=== PATIENT | male | born 1990 | race Caucasian/White ===

== ENCOUNTER 2022-01-22 10:11 | Outpatient (CLI) | payer OTHER, SELFPAY ==
[2022-01-22 20:37] LABS: Hemoglobin A1C 4.8 % (<5.7)
[2022-01-22 20:52] LABS: Alanine Aminotransferase 27 U/L (6-50); Albumin Level 4.7 g/dL (3.5-5.1); Alkaline Phosphatase 37 U/L (38-126); Anion Gap 9 mmol/L (8-16); Aspartate Amino Transferase 32 U/L (17-59); Blood Urea Nitrogen 11 mg/dL (9-20); Calcium 9.3 mg/dL (8.4-10.2); Carbon Dioxide 30 mmol/L (22-30); Chloride 98 mmol/L (98-107); Cholesterol 123 mg/dL (0-200); Estimated Glomerular Filt Rate > 60; Glucose 84 mg/dL (65-110); HDL Direct 44 mg/dL; Potassium 4.6 mmol/L (3.4-5.0); Sodium 137 mmol/L (137-145); Triglycerides 40 mg/dL (<150)
[2022-01-22 21:03] LABS: LDL Cholesterol Direct 54 mg/dL
== END 2022-01-22 10:12 | disposition home or self-care (01) ==
LOC: ANHGOSHLAB 10:14
PROVIDERS: PCP Emergency Medicine; Visit Provider Emergency Medicine
DX: Z00.00 Encounter for general adult medical examination without abnormal findings (principal)
CPT/HCPCS: 36415; 80053; 80061; 83036

== ENCOUNTER 2022-12-24 10:12 | Outpatient (CLI) | payer OTHER, SELFPAY ==
[2022-12-24 14:01] LABS: Alanine Aminotransferase 32 U/L (6-50); Albumin Level 4.3 g/dL (3.5-5.1); Alkaline Phosphatase 34 U/L (38-126); Anion Gap 7 mmol/L (8-16); Aspartate Amino Transferase 34 U/L (17-59); Bilirubin,Total 0.8 mg/dL (0.2-1.3); Blood Urea Nitrogen 11 mg/dL (9-20); Carbon Dioxide 31 mmol/L (22-30); Chloride 101 mmol/L (98-107); Cholesterol 127 mg/dL (0-200); Estimated Glomerular Filt Rate > 60; Glucose 84 mg/dL (65-110); HDL Direct 44 mg/dL; Potassium 4.3 mmol/L (3.4-5.0); Sodium 139 mmol/L (137-145); Triglycerides 37 mg/dL (<150)
[2022-12-24 14:12] LABS: LDL Cholesterol Direct 58 mg/dL
[2022-12-25 07:25] LABS: Hemoglobin A1C 4.8 % (<5.7)
== END 2022-12-24 10:13 | disposition home or self-care (01) ==
LOC: ANHGOSHLAB 10:13
PROVIDERS: PCP Emergency Medicine; Visit Provider Emergency Medicine
DX: Z00.00 Encounter for general adult medical examination without abnormal findings (principal)
CPT/HCPCS: 36415; 80053; 80061; 83036

== ENCOUNTER 2023-12-28 10:10 | Outpatient (CLI) | payer OTHER, SELFPAY ==
[2023-12-28 16:44] LABS: Alanine Aminotransferase 24 U/L (6-50); Albumin Level 4.6 g/dL (3.5-5.1); Alkaline Phosphatase 33 U/L (38-126); Anion Gap 10 mmol/L (4-12); Aspartate Amino Transferase 33 U/L (17-59); Bilirubin,Total 0.7 mg/dL (0.2-1.3); Blood Urea Nitrogen 17 mg/dL (9-20); Carbon Dioxide 30 mmol/L (22-30); Chloride 98 mmol/L (98-107); Cholesterol 142 mg/dL (0-200); Estimated Glomerular Filt Rate > 60; Glucose 82 mg/dL (65-110); HDL Direct 47 mg/dL; Potassium 4.6 mmol/L (3.4-5.0); Sodium 138 mmol/L (137-145); Triglycerides 46 mg/dL (<150)
[2023-12-28 16:56] LABS: LDL Cholesterol Direct 78 mg/dL
[2023-12-28 19:16] LABS: Hemoglobin A1C 5.2 % (<5.7)
== END 2023-12-28 10:11 | disposition home or self-care (01) ==
LOC: ANHGOSHLAB 10:10
PROVIDERS: PCP Emergency Medicine; Visit Provider Emergency Medicine
DX: Z00.00 Encounter for general adult medical examination without abnormal findings (principal)
CPT/HCPCS: 36415; 80053; 80061; 83036

== ENCOUNTER 2024-12-27 08:09 | Outpatient (CLI) | payer OTHER, SELFPAY ==
[2024-12-27 15:00] LABS: Hematocrit 44.0 % (42.0-52.0); Hemoglobin 14.3 g/dL (14.0-18.0); Immature Granulocyte Percent A 0.0 % (0-0.5); Lymphocytes Absolute Auto 1.06 K/mm3 (0.9-3.2); Mean Corpuscular HGB Conc 32.5 g/dl (32-36); Mean Corpuscular Hemoglobin 29.7 pg (26-34); Mean Corpuscular Volume 91.5 fl (80-100); Nucleated Red Blood Cells Absolute Auto 0.000 K/mm3 (0.0-0.012); Nucleated Red Blood Cells Perc 0.0 % (0.0-0.2); Platelet Count Result 164 k/mm3 (150-375); Red Blood Count 4.81 M/mm3 (4.6-6.20); White Blood Count 3.4 K/mm3 (4.5-10.0)
[2024-12-27 15:13] LABS: Hemoglobin A1C 5.1 % (<5.7)
[2024-12-27 15:33] LABS: Alanine Aminotransferase 22 U/L (6-50); Albumin Level 4.6 g/dL (3.5-5.1); Alkaline Phosphatase 35 U/L (38-126); Anion Gap 9 mmol/L (4-12); Aspartate Amino Transferase 33 U/L (17-59); Bilirubin,Total 0.7 mg/dL (0.2-1.3); Blood Urea Nitrogen 14 mg/dL (9-20); Calcium 9.2 mg/dL (8.4-10.2); Carbon Dioxide 27 mmol/L (22-30); Chloride 102 mmol/L (98-107); Cholesterol 181 mg/dL (0-200); Estimated Glomerular Filt Rate > 60; Glucose 72 mg/dL (65-110); HDL Direct 53 mg/dL; Potassium 4.4 mmol/L (3.4-5.0); Sodium 138 mmol/L (137-145); Total Protein 7.7 g/dL (6.3-8.2); Triglycerides 52 mg/dL (<150)
[2024-12-27 16:02] LABS: Thyroid Stimulating Hormone Reflex 3.160 uIU/mL (0.465-4.68)
[2024-12-27 16:09] LABS: Prostate Specific Antigen 0.8 ng/mL (< OR = 4.0)
[2024-12-27 16:28] LABS: Vitamin B12 400.0 pg/mL (239-931)
== END 2024-12-27 08:10 | disposition home or self-care (01) ==
LOC: ANHGOSHLAB 08:10
PROVIDERS: PCP Family Medicine; Visit Provider Family Medicine
DX: Z13.29 Encounter for screening for other suspected endocrine disorder (principal); E53.8 Deficiency of other specified B group vitamins; Z00.00 Encounter for general adult medical examination without abnormal findings; Z13.1 Encounter for screening for diabetes mellitus; Z13.220 Encounter for screening for lipoid disorders; E55.9 Vitamin D deficiency, unspecified; Z12.5 Encounter for screening for malignant neoplasm of prostate; Z80.42 Family history of malignant neoplasm of prostate
CPT/HCPCS: 36415; 80053; 80061; 82306; 82607; 83036; 84153; 84443; 85025; G0103

== ENCOUNTER → 2025-04-09 12:12 | Outpatient (REF) | payer OTHER, SELFPAY ==
--- NOTE | 2025-04-09 12:12 | S_PTH ---
PATIENT: Kenneth Niño LOC: [facility] U#:[id number] AGE/SX: 34/M ROOM: RE04/09/[address]: Thalia Diaz PA-C : 1990 BED: DIS: SPEC #: [id number] RECD: 04/09/25 12:52 STATUS: ALYSSA RE #: [id number] PATRICIA: 04/09/25 12:[address]: Thalia Diaz DEPT: [facility] Surgical RECD BY: Carolyn Lopez ENTERED: 04/09/25 12:54 SP TYPE: Surgical OTHR DR: Alejandra He MD Tissues: A - Mass B - Mass C - Mass Procedures: Hematoxylin and Eosin Stain Gross and Microscopic Level 3
== END ==
LOC: ANHLAB 12:12
PROVIDERS: PCP Family Medicine; Visit Provider Physician Assistant Surgical
DX: L72.9 Follicular cyst of the skin and subcutaneous tissue, unspecified (principal)
CPT/HCPCS: 88304

== ENCOUNTER → 2025-04-30 11:32 | Outpatient (REF) | payer OTHER, SELFPAY ==
--- NOTE | 2025-04-30 11:32 | S_PTH ---
PATIENT: Kenneth Niño LOC: [facility] #:[id number] AGE/SX: 34/M ROOM: RE04/30/[address]: Bryant Rodriguez MD : 1990 BED: DIS: SPEC #: [id number] RECD: 04/30/25 12:53 STATUS: ALYSSA REEfe #: [id number] APTRICIA: 04/30/25 11:[address]: Bryant Rodriguez DEPT: [facility] Surgical RECD BY: Carolyn Lopez ENTERED: 04/30/25 12:53 SP TYPE: Surgical OTHR DR: Alejandra He MD Tissues: A - Cyst Procedures: Hematoxylin and Eosin Stain Gross and Microscopic Level 4
--- OUTSIDE RECORDS SUMMARY | 2025-04-30 13:44 | XMS_ITS | Clinical Summary ---
Author Organization [facility] Address [address] [place] [address] Care Team Providers Care Freight Broker Agent Name Role Phone Unavailable Primary Care Provider Unavailabl e Source Comments [facility],non-owned Affiliates and Associated Physician Practices is amultiple site organization consisting of ambulatory clinics and hospital sitesin [place], [place], [place]. This disclosure is being madepursuant to the Care Everywhere program and may not contain all information available regarding this patient. Last updated 18.[facility] Allergies No known active allergies Medications * Be aware that medications may not be up to date on this document. Alwaysverify current medications with the patient. No known medications Active Problems No known active problems Encounters Date Type Department Care Team Description 04/27/2025 Results Follow-Up 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) 04/26/2025 Travel 04/25/2025 Telephone [facility]ology [address] , [facility] [address] [place] [address] Cele Khan MD Question 04/24/2025 Results Follow-Up [facility] [address] [place] [phone] Robyn Painter MD 04/18/2025 10:40 AM MAINTENANCE MECHANIC MILLWRIGHT Office Visit [facility] - Dermatology [address] [place] [phone] Robyn Painter MD Neoplasm of unspecified behavior of bone, soft tissue, and skin (Primary Dx); Multiple benign nevi; Lentigines 04/18/2025 Travel 04/17/2025 Travel from Last 3 Months Social History Tobacco Use Types Packs/Day Years Used Date Smoking Tobacco: Never Smokeless Tobacco: Never Tobacco Cessation:Counseling Given: Not Answered Alcohol Use Standard Drinks/Week Comments Yes 0 (1 standard drink = 0.6 oz pur e alcohol) Sex and Gender Information Value Date Recorded Sex Assigned at Not on file Legal Sex Male 6:47 AM MAINTENANCE MECHANIC MILLWRIGHT Gender Identity Not on file Sexual Orientation Not on file Plan of Treatment Upcoming Encounters Date Type Department Care Team (Late st Contact Info) Description 05/24/2025 8:00 AM MAINTENANCE MECHANIC MILLWRIGHT Clinical Support [facility] - Dermatology [address] [place] [phone] 04/17/2026 8:20 AM MAINTENANCE MECHANIC MILLWRIGHT Office Visit [facility] - Dermatology [address] [place] [phone] Robyn Painter MD [address] [place] [address] [place] [address] Health Maintenance Due Date Last Done Comments HIV SCREENING 12/08/2007 HEPATITIS C SCREENING 12/03/2010 DTAP/TDAP/TD VACCINES (1 - Tdap) 12/08/2011 HEPATITIS B VACCINE (1 of 3 - 19+ 3-dose series) 12/08/2011 HPV VACCINE (1 - 3-dose SCDM series) 12/08/2019 DEPRESSION SCREENING 06/07/2024 COVID-19 VACCINE ( - season) 2025 06/02/2021, 09/28/2020, 09/05/2020 INFLUENZA VACCINE (#1) 2025 , 05/28/2023, 05/20/2021, Additional history exists ZOSTER VACCINE (1 of 2) 2042 HIB VACCINE Aged Out No longer eligi ble based on patient's age to complete this topic MENINGOCOCCAL (Group B) VACCINE SHARED DECISION-MAKING Aged Out No longer eligible based on patient's age to complete this topic MENINGOCOCCAL GROUPS A/C/Y/W VACCINE Aged Out No longer eligible based on patient's age to complete this topic PNEUMOCOCCAL VACCINE Aged Out No long er eligible based on patient's age to complete this topic Procedures Procedure Name Priority Date/Time Associated Diagnosis Comments CHG IMMUNOCYTOCHEMISTRY Routine 04/26/20 2:36 PM MAINTENANCE MECHANIC MILLWRIGHT 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) OR [facility] MOHS MG TQ H/N/H/F/G 1ST STAG 5 BLOC Routine 04/26/2025 2:36 PM MAINTENANCE MECHANIC MILLWRIGHT 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) DERMATOPATHOLOGY Routine 04/26/2025 8:55 AM MAINTENANCE MECHANIC MILLWRIGHT 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) DERMATOPATHOLOGY Routine 04/18/2025 12:0 1 PM MAINTENANCE MECHANIC MILLWRIGHT Neoplasm of unspecified behavior of bone, soft tissue, and skin OR TANGNTL BX SKIN SINGLE LES Routine 04/18/2025 11:30 AM MAINTENANCE MECHANIC MILLWRIGHT Neoplasm of unspecified behavior of bone, soft tissue, and skin from Last 3 Months Results * OR [facility] MOHS MG TQ H/N/H/F/G 1ST STAG 5 BLOC, CHG IMMUNOCYTOCHEMISTRY (04/26/2025 2:36 PM MAINTENANCE MECHANIC MILLWRIGHT) Narrative Cele Khan MD - 04/26/2025 2:36 PM MAINTENANCE MECHANIC MILLWRIGHT Cele Khan MD 04/26/2025 5:17 PM Mohs Micrographic Surgery Operative Note Procedure: Mohs micrographic surgery Date of service: 04/26/2025 Location: left 2nd dorsal toe Preop diagnosis: Melanoma in situ Postop diagnosis: Melanoma in situ Mohs AUC score: 8 Number of stages: 1 Preop size: 0.8x0.6 cm Postop size: 1.6x1.6x cm Depth of final defect: adipose Previous dermpath accession #: [id number] Repair type: second intent Mohs accession #: [id number] Surgeon and Pathologist: Cele Khan MD served as both surgeon and pathologist. No other physician was involved in the cancer removal or pathology interpretation. Assistants: N/A Indications for Mohs Surgery Removal of the patient's tumor is complicated by the following clinical features: Clinical area critical for tissue conservation (Area H: central face, eyelids, eyebrows, nose, lips, chin, ear, periauricular, judaism, genitalia, hands, feet, ankles, nail units and areola). Based on my medical judgement, Mohs surgery is the most appropriate treatment for this cancer compared to other treatments. I discussed alternative treatments to Mohs surgery and specifically discussed the risks and benefits of curettage, excision with permanent sections, and foregoing treatment. The rationale for Mohs was explained to the patient and consent was obtained. The risks, benefits and alternatives to therapy were discussed in detail. Specifically, the risks of infection, scarring, bleeding, prolonged wound healing, incomplete removal, allergy to anesthesia, nerve injury and recurrence were addressed. Prior to the procedure, the treatment site was clearly identified and confirmed by the patient. All components of Hallie Protocol/PAUSE Rule completed. Procedural pause conducted to verify: correct patient identity with two patient identifiers (name and ), procedure to be performed and as applicable, correct side and site, correct patient position, and availability of implants, special equipment or special requirements. INFORMED CONSENT Discussed the risks, benefits, alternatives, and the necessity of other members of the healthcare team participating in the procedure. All questions answered and consent given. PATIENT EDUCATION Ready to learn, no apparent learning barriers were identified; learning preferences include listening. Explained diagnosis and treatment plan; patient expressed understanding of the content. STAGE I: The patient was placed on the operating table. The cancer was identified and outlined. An area of normal skin from the uninvolved foot was taken as a negative control. An area of involved skin from the tumor biopsy site was taken as a positive control. The entire surgical field was prepped with hibiclens. The surgical site was anesthetized using Lidocaine 1% with epinephrine 1:100,000 buffered with sodium bicarbonate 8.4% in a 1:10 ratio.The area of clinically apparent tumor was excised with an 3mm margin to fat as a debulk. Given the aggressive nature of the tumor, the tumor debulk was sent to the [facility] Dermatopathology lab for permanent sections with or without immunohistochemistry to evaluate the tumor for aggressive features and to stage the tumor by measuring tumor depth. This was NOT done for margin analysis. The Mohs layer taken around the debulk was processed as outlined in stage 1 below, in the typical Mohs fashion. Controls were deemed to be running properly: Positive control: N/A. No tumor seen at the margin. Negative control: N/A. No tumor seen at the margin. The layer of tissue was then surgically excised using a #15 blade using an additional 3mm margin around the debulk excision, and was then transferred onto a specimen sheet maintaining the orientation of the specimen. Hemostasis was obtained using monopolar electrodesiccation. The wound site was then covered with a dressing while the tissue samples were processed for examination. The specimen was oriented, mapped and divided. Each section was then inked and processed in the Mohs lab using the Mohs protocol and submitted for frozen section. The histopathologic sections were reviewed by the surgeon in conjunction with the reference map. Note: MART-1 (Melanoma Antigen Recognized by T-cells) antibody immunostaining was used during Mohs surgery as per standard protocol, in addition to routine processing of all specimens with hematoxylin and eosin. The peripheral margins/edges were processed with the MART-1 stain. The center was examined with hematoxylin & eosin and MART-1 immunostains. The patient was informed of the procedure and its risk/benefits during the consent for the procedure. One or more of the reagents used in immunohistochemical testing in this case may not have been cleared or approved by the U.S. Food and Drug Administration (FDA). The FDA has determined that such clearance or approval is not necessary. These tests are used for clinical purposes. They should not be regarded as investigational or for research. These reagents performance characteristics have been determined by the Dermatopathology Laboratory at [facility]. This laboratory is certified under the Clinical Laboratory Improvement Amendments of 1988 (CLIA-88) as qualified to perform high complexity clinical laboratory testing. The specimen was oriented, mapped and divided. Each section was then inked and processed in the Mohs lab using the Mohs protocol and submitted for frozen section. The histopathologic sections were reviewed by the surgeon in conjunction with the reference map. Total blocks: 1 Total slides: 3 Frozen sections were examined by the surgeon. No additional tumor was identified. No additional histologic findings appreciated. Cell morphology: N/A. No tumor seen at the margin. Pathological pattern: N/A. No tumor seen. Depth of invasion: N/A. No tumor seen. Scar tissue: Not Present Perineural invasion: Not Present Inflammation obscuring possible tumor presence: Not Present [facility] CLIA # [id number] Mohs animal laboratory technician: Cele Khan MD REPAIR: Secondary Intention The patient is status-post Mohs micrographic surgery. The surgical site was examined with attention to normal anatomic and functional relationships. After consideration and discussion of multiple options with the patient, it was determined that healing by secondary intention would offer the best chance for preservation/samaritan of all normal anatomic and functional relationships. The patient verbalized understanding and agreed with this plan. It is also understood that should second intention healing be sub-optimal, additional procedures such as scar revision, steroid injection or dermabrasion may be recommended. The open wound was cleaned and a thick layer of vaseline was applied. A pressure dressing consisting of non-adherent gauze, gauze, and hypafix was applied. Wound care was discussed with the patient both orally and in writing. The patient stated understanding and agreement with the course of care. No postoperative medications were prescribed. The patient will follow up in 4 week(s) for a wound check. Dr. Khan performed the entire surgery, and documentation used to initiate this operative report. I entered the information in our [employer]. DocFlowsheet with the information provided by Dr. Khan on her handwritten, paper format, surgical worksheet, which was then used to initiate the create of this note. Dr. Khan then reviewed and edited the note as needed to complete the note. Lara Lugo LPN I have reviewed the note, edited it as necessary and performed the entire procedure. Cele Khan MD Chief Medical Technologist 04/26/2025 Cele Khan MD PROCEDURE/MINOR SURGICAL ORDER ANAID Final Result * DERMATOPATHOLOGY (Specimen Count = 1) (04/26/2025 8:55 AM MAINTENANCE MECHANIC MILLWRIGHT) Only the most recent of2 resultswithin the time period is included. Case Report Dermatopathology Report Case: [id number] Authorizing Provider: Cele Khan MD Collected: 04/26/2025 08:55 AM Ordering Location: [facility] - Received: 04/26/2025 10:12 AM Dermatology Pathologist: Nolvia Lee MD Specimen: Skin, left 2nd dorsal toe - debulk 2:42 PM [facility] DERMAT[facility]ORAT[facility] Final Diagnosis Specimen A. SKIN, left 2nd dorsal toe - debulk: PROCEDURE SITE CHANGES RESIDUAL MELANOMA NOT IDENTIFIED (L90.5) 2:42 PM [facility] DERMATOPATHOLOGY LABORATORY at 1441 MAINTENANCE MECHANIC MILLWRIGHT Clinical History Date: 04/26/25 Age: 34 M Diagnosis: MMIS Location: L 2nd dorsal toe History/Surgical Details: Debulk Prior DermPath Accession #(s): N/A Surgery Case Detail: Mohs Surg Done. Yes, Date 04-26-25 Mohs Case # [id number] Submitted for: N/A Debulk type: N/A 2:42 PM [facility]MATOPATH[facility]Y [facility] Gross Description A. 10x7x2 2:42 PM [facility]MAT[facility]ATH[facility]Y [facility] Microscopic Description Specimen A. SKIN, left 2nd dorsal toe - debulk: Sections show an area of inflamed granulation tissue induced by a recent biopsy. No residual melanoma is identified. 2:42 PM [facility] DERMATOPATHOLOGY [facility]OR[facility] Disclaimer An external and internal positive and negative controls are appropriate for the histochemical, immunohistochemical and immunofluorescence stain(s) in this case (if any), except where stated explicitly. The performance characteristics of the stain(s) cited in this report were developed and its performance characteristic determined by the Dermatopathology Laboratory at [facility], directed by Dr. Ar Salter. These tests need not be, and therefore are not, approved by the [place] Food and Drug Administration. The tests are used for clinical purposes. Billing Codes Specimen Charges Stain Charges 33137 1 2:42 PM [facility]ERMATOPATH[facility] Embedded Images 2:42 PM [facility] Pathology/Cytolo gy TISSUE SPECIMEN FROM SKIN / Unknown 04/26/2025 8:55 AM MAINTENANCE MECHANIC MILLWRIGHT 04/26/2025 10:12 AM MAINTENANCE MECHANIC MILLWRIGHT us Cele Khan MD LAB - PATHOLOGY/CYTOLOGY ORDER ANAID Final Result DERMATOPATHOLOGY LABORATORY [facility] - Department of Dermatology [address] [place] [address], [facility] [phone] * OR TANGNTL BX SKIN SINGLE LES (04/18/2025 11:30 AM MAINTENANCE MECHANIC MILLWRIGHT) Narrative Robyn Painter MD - 04/18/2025 11:30 AM MAINTENANCE MECHANIC MILLWRIGHT Robyn Paitner MD 04/22/2025 11:44 PM Risks, benefits and alternatives to shave biopsy were discussed with the patient. Verbal consent was obtained. Encounter Diagnoses Name Primary? Neoplasm of unspecified behavior of bone, soft tissue, and skin Yes Multiple benign nevi Lentigines Location: left 2nd dorsal toe Skin prep: Alcohol Anesthesia: 1% lidocaine with epinephrine Hemostasis: Aluminum chloride Dressing and wound care discussed. Specimen(s) placed in a patient labeled container and sent to [facility] Dermatopathology. Patient agrees to phone call for results and message if not available. Robyn Painter MD Robyn Painter MD PROCEDURE/MINOR SURGICAL ORD ERABLES Final Result from Last 3 Months Insurance [employer]
--- OUTSIDE RECORDS SUMMARY | 2025-04-30 13:44 | XMS_ITS | Encounter Summary ---
Author Organization [facility] Address [address] [facility] [place] [address] Care Team Providers Care Label Printer Name Role Phone Unavailable Primary Care Provider Unavailabl e Encounter Details Date Type Department Care Team (Late st Contact Info) Description 04/24/2025 Results Follow-Up [facility] Dermatology [address] [place] [address], [place] [phone] Robyn Painter MD [address] [place] [address] [address] [place] [address] Social History Tobacco Use Types Packs/Day Years Used Date Smoking Tobacco: Never Assessed Sex and Gender Information Value Date Recorded Sex Assigned at Not on file Legal Sex Male 6:47 AM FRUIT HARVEST WORKER Gender Identity Not on file Sexual Orientation Not on file documented as of this encounter Miscellaneous Notes * Telephone Encounter - Cele Khan MD - 04/25/2025 8:20 AM CST Please schedule same day Mohs for melanoma at the [facility] 7:15AM . Okay to add on 04/26 (we canhave up to 3 melanomas at 7:15AM) or to 05/10 at 7:15AM (we can have up to 3 melanomas at that time). Final Diagnosis Specimen A. 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 Khan for Mohs for melanoma in situ on toe Thank you. T HARVEST WORKER documented in this encounter Plan of Treatment Upcoming Encounters Date Type Department Care Team (Late st Contact Info) Description 05/24/2025 8:00 AM FRUIT HARVEST WORKER Clinical Support [facility] - Dermatology [address] [place] [phone] 04/17/2026 8:20 AM FRUIT HARVEST WORKER Office Visit [facility] - Dermatology [address] [place] [phone] Robyn Painter MD [address] [place] [address] [place] [phone] documented as of this encounter Visit Diagnoses Not on filedocumented in this encounter
--- OUTSIDE RECORDS SUMMARY | 2025-04-30 13:44 | XMS_ITS | Encounter Summary ---
Author Organization [facility] Address [facility] [place] [address] Care Team Providers Care Buckle Assembler Name Role Phone Unavailable Primary Care Provider Unavailabl e Encounter Details Date Type Department Care Team (Late Contact Info) Description 04/27/2025 Results Follow-Up [facility] - Dermatology [address] [place] [phone] Cele Khan MD [address] [place] [address] [place] [address] Social History Tobacco Use Types Packs/Day Years Used Date Smoking Tobacco: Never Smokeless Tobacco: Never Alcohol Use Standard Drinks/Week Comments Yes 0 (1 standard drink = 0.6 oz pur e alcohol) Sex and Gender Information Value Date Recorded Sex Assigned at Not on file Legal Sex Male 6:47 AM CONTINUOUS MINER OPERATOR Gender Identity Not on file Sexual Orientation Not on file documented as of this encounter Plan of Treatment Upcoming Encounters Date Type Department Care Team ([facility] Contact Info) Description 05/24/2025 8:00 AM CONTINUOUS MINER OPERATOR Clinical Support [facility] Dermatology [address] [place] [phone] 04/17/2026 8:20 AM CONTINUOUS MINER OPERATOR Office Visit [facility] - Dermatology [address] [place] [phone] Robyn Painter MD [address] [place] [address] [place] [phone] documented as of this encounter Visit Diagnoses Not on filedocumented in this encounter
== END ==
LOC: ANHLAB 11:32
PROVIDERS: PCP Family Medicine; Visit Provider Plastic Surgery
DX: L72.11 Pilar cyst (principal)
CPT/HCPCS: 88305